=== PATIENT | female | born 1980 | race Caucasian/White ===

== ENCOUNTER → 2018-05-18 11:48 | Outpatient (CLI) | payer MEDICAID, SELFPAY ==
[2018-05-22 09:43] LABS: HPV Reflexed? NOT INDICATED
== END ==
PROVIDERS: Visit Provider Obstetrics & Gynecology
DX: Z12.4 Encounter for screening for malignant neoplasm of cervix (principal)
CPT/HCPCS: 88175; G0145

== ENCOUNTER → 2022-04-29 | Outpatient (CLI) | payer MEDICAID, SELFPAY ==
[2022-04-29 18:01] LABS: Erythrocyte Sedimentation Rate 16 mm/hr (0-30)
[2022-04-29 18:04] LABS: Vitamin D,25 Hydroxy 55.9 ng/mL
[2022-04-29 18:16] LABS: Anion Gap 8 (5-15); BUN 13 mg/dL (7-18); Calcium,Total 9.1 mg/dL (8.5-10.1); Chloride 107 mmol/L (98-107); Cholesterol 164 mg/dL (200); Creatinine, Serum 0.77 mg/dL (0.55-1.02); EST Glomerular Filtration Rate 87 mL/min (>60); Est Glom Filt Rate - Afr Amer 106 mL/min (>60); Glucose 88 mg/dL (74-106); High Density Lipoprotein 76 mg/dL; Potassium 3.9 mmol/L (3.5-5.1); Sodium Level 140 mmol/L (136-145); Thyroid Stim Hormone (TSH) 2.26 uIU/mL (0.358-3.74); Triglycerides 82 mg/dL; Very Low Density Lipoprotein 16 mg/dL (5-40)
== END | disposition home or self-care (01) ==
LOC: MFPLAB 15:18
PROVIDERS: PCP Family Medicine; Referring Provider Family Medicine; Visit Provider Family Medicine
DX: Z00.00 Encounter for general adult medical examination without abnormal findings (principal)
CPT/HCPCS: 36415; 80048; 80061; 82306; 84443; 85652

== ENCOUNTER → 2022-07-29 | Outpatient (CLI) | payer MEDICAID, SELFPAY ==
--- NOTE | 2022-07-29 13:40 | BI_ITS ---
MAMMOGRAPHY - BILATERAL SCREENING REASON FOR EXAM: Female, 42 years old. Routine annual screening examination. PERTINENT HISTORY: Aunt with breast cancer. TECHNIQUE: Digital bilateral breast kurt (3D mammographic acquisition) in the CC and MLO projections. 2-D mediolateral oblique (MLO) and craniocaudad (CC) views of both breasts were obtained. CAD: Full Field Digital Mammography with Computer Added Detection was performed. COMPARISON: None. Baseline examination. FINDINGS: Breast Composition: The breasts are extremely dense, which lowers the sensitivity of mammography. There are no dominant masses or suspicious calcifications. No other significant abnormalities are identified. BI/SCRN MAMM (CAD)W/KURT BILAT IMPRESSION: Negative screening mammogram. Yearly followup mammogram recommended. (A) ASSESSMENT CATEGORY: BIRADS Category 1: Negative. A letter regarding these results will be sent to the patient by the facility within 30 days. Approximately 10% of breast cancers are not detected by mammography. A normal mammogram should not delay biopsy of a clinically suspicious abnormality. [id number] Electronically Signed: Raul Ortiz MD at 14:36 EST ,
== END | disposition home or self-care (01) ==
LOC: OPBI 13:40
PROVIDERS: PCP Family Medicine; Referring Provider Family Medicine; Visit Provider Family Medicine
DX: Z12.31 Encounter for screening mammogram for malignant neoplasm of breast (principal)
CPT/HCPCS: 77063; 77067

== ENCOUNTER → 2022-08-01 | Outpatient (CLI) | payer MEDICAID, SELFPAY ==
--- NOTE | 2022-08-01 17:37 | STRESSREP ---
Stress Test Report Exercise myocardial perfusion stress test. 42-year-old lady with a history of chest pain Stress protocol: Resting EKG demonstrates normal sinus rhythm with a rate of 76 bpm resting blood pressure is 118/78 mmHg. The patient exercised according to the regular Michael protocol for a total duration of 9 minutes attaining a maximum heart rate of 153 bpm which was 86% of maximum predicted heart rate; the maximum workload was 10.1 metabolic equivalents. At rest there were no ST or T wave changes noted to suggest ischemia and at peak exercise upsloping ST changes only were noted which did not meet the criteria for ischemia. No clinical angina was noted the test was terminated due to the target heart rate being achieved/fatigue. The peak blood pressure was 140/72 mmHg. Rate-pressure product was 19,100. Myocardial perfusion protocol. 11 mCi of technetium 99m sestamibi was injected at rest. The patient exercised according to regular Michael protocol for total duration of 9 minutes and at peak exercise 33.6 mCi of technetium 99m sestamibi was injected stress images were obtained stress and rest images were reconstructed in comparing the short axis vertical long and horizontal long axis. Gated images were also obtained. Perfusion SPECT analysis: Review of the stress images demonstrate normal uptake of tracer noted in all areas of the myocardium. The resting images similarly demonstrate normal uptake of tracer noted in all areas of the myocardium. No areas of reversibility are noted to suggest ischemia no previous infarct was noted. Gated SPECT analysis: The gated ejection fraction is 68%. Conclusion: Normal exercise myocardial perfusion stress test at a high workload Preserved ejection fraction.
== END | disposition home or self-care (01) ==
PROVIDERS: PCP Family Medicine; Visit Provider Family Medicine
DX: R07.9 Chest pain, unspecified (principal)
CPT/HCPCS: 78452; 93017; A9500; A4216

== ENCOUNTER → 2022-10-07 | Outpatient (CLI) | payer MEDICAID, SELFPAY ==
--- NOTE | 2022-10-07 11:57 | RAD_ITS ---
STUDY: X-RAY - LUMBAR SPINE REASON FOR EXAM: Female, 42 years old. Sciatica TECHNIQUE: 5 view(s) of the lumbar spine were obtained. COMPARISON: None FINDINGS: Normal lumbar lordosis. There is no substantial scoliosis. There is slight retrolisthesis at L2-L3 and L1-L2. There is dextroscoliosis of the thoracolumbar spine at the level of T12 and L1. There is mild multilevel spondylosis. There is mild multilevel disc space narrowing. Most significant L5-S1. There is facet arthropathy. The soft tissue structures are unremarkable. RAD/L/S Spine Min 4 Views IMPRESSION: Dextroscoliosis thoracolumbar spine. Multilevel degenerative change thoracolumbar spine. Electronically Signed: Penelope Rodas MD at 12:50 EDT ,
== END | disposition home or self-care (01) ==
LOC: MTRAD 11:55
PROVIDERS: PCP Family Medicine; Referring Provider Family Medicine; Visit Provider Family Medicine
DX: M54.30 Sciatica, unspecified side (principal)
CPT/HCPCS: 72110

== ENCOUNTER → 2022-12-12 | Outpatient (CLI) | payer MEDICAID, SELFPAY ==
--- NOTE | 2022-12-12 16:51 | NEURO ---
NCS and/or EMG Patient Report Ordering Doctor: Luís Dove DATE OF SERVICE: 12/12/22 Findings: Nerve conduction studies were performed in the right and left upper extremities. The right median motor study recording the abductor pollicis brevis showed a normal amplitude, normal distal latency and normal conduction velocity. The right ulnar motor study recording the abductor digiti minimi showed a normal amplitude, normal distal latency and normal conduction velocity. No conduction block or focal slowing was present across the elbow. The right median sensory response recording digit two showed a normal amplitude, borderline latency and slowed conduction velocity. The right ulnar sensory response recording digit five showed a normal amplitude, latency and conduction velocity. The right radial sensory response recording over the extensor snuff box showed a normal amplitude, latency and conduction velocity. The left median motor study recording the abductor pollicis brevis showed a normal amplitude, normal distal latency and normal conduction velocity. The left ulnar motor study recording the abductor digiti minimi showed a normal amplitude, normal distal latency and normal conduction velocity. No conduction block or focal slowing was present across the elbow. The left median sensory response recording digit two showed a normal amplitude, borderline latency and slowed conduction velocity. The left ulnar sensory response recording digit five showed a normal amplitude, latency and conduction velocity. The left radial sensory response recording over the extensor snuff box showed a normal amplitude, latency and conduction velocity. Right median-ulnar lumbrical / interosseous motor latencies showed a prolonged median latency compared to the ulnar. Left median-ulnar lumbrical / interosseous motor latencies showed a prolonged median latency compared to the ulnar. Needle EMG of the right upper extremity and cervical paraspinal muscles was performed. No denervation was seen in any muscle. All motor unit morphology, activation and recruitment patterns were normal. Needle EMG of the left upper extremity was omitted due to the paucity of findings on the more symptomatic side. Impression: This is an abnormal study. There is electrophysiologic evidence of mild median neuropathy across the wrist in both upper extremities. These findings are compatible with the clinical diagnosis of mild carpal tunnel syndrome. In addition, there is no electrophysiologic evidence of superimposed cervical radiculopathy, brachial plexopathy or other entrapment neuropathy in the right upper extremity. Sumanth Morin D.O. Multi Select Codes Neurology Neurology Interp Codes: 97481-12 Musc test done w/n test comp (interp) and 73421-13 Nrv cndj test 13/> studies (interp)
== END | disposition home or self-care (01) ==
LOC: PSN 15:27
PROVIDERS: PCP Family Medicine; Referring Provider Family Medicine; Visit Provider Family Medicine
DX: R20.2 Paresthesia of skin (principal)
CPT/HCPCS: 95886; 95913

== ENCOUNTER 2023-03-05 13:28 | Emergency (ER) | payer MEDICAID, SELFPAY ==
[2023-03-05 13:30] VITALS: BP 109/79; PULSE 85; RESP 18; TEMP 36.9; O2SAT 97; BMI 29.2
[2023-03-05] MEDS: Morphine 4 MG/ML Syringe 6 MG IM (14:02)
[2023-03-05] MEDS: predniSONE 20 MG Tablet 60 MG PO (14:03)
[2023-03-05] MEDS: Ondansetron ODT 4 MG Tablet PO (14:03)
[2023-03-05 14:30] LABS: Bacteria 0 SEEN /hpf (None Seen); Mucous, Urine 0 SEEN /hpf (<or=2+); Red Blood Cells-Urine 0 SEEN /hpf (0-5)
[2023-03-05 14:32] LABS: Color, Urine Yellow (Yellow); Glucose, Dipstick Normal (Normal); Ketone-Dipstick 50 mg/dl (Negative); Leukocyte Esterase-Dipstick 100 /ul (Negative); Nitrite-Dipstick Negative (Negative); Occult Blood-Urine Negative /ul (Negative); Protein-Dipstick Negative (Negative); Urine Bilirubin Dipstick Negative (Negative); Urine Clarity Sl. Cloudy (Clear); Urine Urobilinogen Normal (Normal)
[2023-03-05 14:45] LABS: Squamous Epithelial Cells - UA 5-10 SEEN /hpf (5-10); White Blood Cells 10-25 SEEN /hpf (0-5)
[2023-03-05 14:47] LABS: Calcium Oxalate Crystals Ur 0 SEEN /hpf (<or=2+); Coarse Granular Cast 0 SEEN /lpf (0-5 /lpf); Fine Granular Cast- Urine 0 SEEN /lpf (0-5); Hyaline Cast 0 SEEN /lpf (0-5); Red Cell Cast 0 SEEN /lpf (None Seen); Renal Epithelial Cells 5-10 SEEN /hpf (0-5); Transitional Epithelial - Ur 5-10 SEEN /hpf (0-5); Triple Phosphate Crystals Ur 0 SEEN /hpf (<or=1+); Uric Acid Crystals Ur 0 SEEN /hpf (<or=1+); Waxy Cast-Urine 0 SEEN /lpf (None Seen); White Cell Cast 0 SEEN /lpf (None Seen)
[2023-03-05 14:48] LABS: Internal QC Validated? YES +Cl - CLEAR BKGD; Other Crystals-Urine 1+ /hpf (None Seen); Pregnancy, Urine Negative Negative; Record Kit Lot#,Urine Preg HCG0000667200
--- NOTE | 2023-03-05 15:43 | ED.VIS.BACK ---
HPI History of Present Illness Chief Complaint: Back Informant: patient Narrative Narrative: Patient is a 42-year-old female presenting from home for low back pain rating down her leg. She states she has a history of sciatica (usually on her right side) but is never been this bad. She states about 2 weeks ago she had another flareup but she was able to treat it with stretching and rest at home. Yesterday morning she woke up she urinate around 5 AM and on the toilet she suddenly had severe pain in her right lower back rating down to her right thigh. She is the pain was so bad that she was nauseous and felt lightheaded. She was sweating. She was using a heating pad and was feeling a little bit better morning until she had a change of diaper of her disabled child. All of a sudden the pain came back and was intolerable. She another episode nausea and lightheadedness. Her to come to the emergency room. She notes that she does take meloxicam and have gabapentin at home for carpal tunnel which has not been treated yet. She had been previously referred to spine doctor but they do not take her insurance ([employer]). She also wonders if she could have a UTI as she does have some slight pain radiating into her right groin/suprapubic area. Denies any blood in her urine. Denies any fever or chills. Denies any bowel or bladder incontinence. Pain is better when she lays completely still and significantly worse with movements. No other complaints at this time. PFSH PFSH Home Medications hydrocodone-acetaminophen 5-325mg 5mg-325mg 1 tab PO Q6H PRN PRN Pain 3 days #12 TABLETS 03/05/23 [Rx Last Taken Unknown] nitrofurantoin monohydrate/macrocrystals 100 mg capsule (Macrobid) 100 mg PO Q12H 3 days #6 caps 03/05/23 [Rx Last Taken Unknown] ondansetron 4 mg disintegrating tablet 4 mg PO Q8H PRN PRN Nausea #10 tabs 03/05/23 [Rx Last Taken Unknown] prednisone 20 mg tablet 40 mg (2 x 20 mg) PO DAILY #8 TABLETS 03/05/23 [Rx Last Taken Unknown] Allergy/AdvReac Type Severity Reaction Status Date / Time No Known Allergies Allergy Verified 03/05/23 13:30 Social History Smoking Status: Never smoker ROS ROS ED Constitutional Constitutional ED: Denies chills or fever(s) Gastrointestinal Gastrointestinal: Reports nausea; Denies abdominal pain, diarrhea or vomiting Genitourinary Genitourinary ED: Reports other Details: Traced back pain with urination ; Denies dysuria, hematuria or urinary frequency Musculoskeletal Musculoskeletal: Reports back pain; Denies arthralgias Integumentary Denies rash Neurologic Neurologic: Denies paresthesias or weakness Psychiatric Psychiatric: Denies anxiety EXAM Physical Exam Const Vital Signs: 03/05/23 13:30 Temperature 98.4 F Temperature Source Temporal Pulse Rate 85 Respiratory Rate 18 Blood Pressure 109/79 Blood Pressure Mean 89 Pulse Ox 97 Oxygen Delivery Method Room Air Positive well nourished and well developed General Appearance ED: well developed and NAD HEENT Reports moist mucous membranes Resp normal respiratory effort and clear to auscultation bilaterally Cardio regular rate, regular rhythm and no murmurs GI normal to inspection, nondistended, normoactive bowel sounds and soft to palpation Back/Spine General Back: Negative for CVA tenderness Cervical Spine: Negative for cervical spine tenderness Lumbar Spine / Lower Back: straight leg raise positive right at 30 degrees and straight leg raise positive - left at 70 degrees Extremity normal to inspection Extremity Narrative: 2+ DP pulses General Extremety ED: Negative for edema or tenderness General Extremity: Negative for edema Neuro oriented x3 Sensorium / Orientation: alert Motor Exam: strength 5/5 throughout Psych mental status grossly normal MDM MDM MDM Narrative Medical decision making narrative: Patient presenting for worsening back pain. Back pain is highly consistent with sciatica right. She does not have red flag symptoms concerning for cauda equina syndrome. No midline tenderness to make trauma. Do not think any imaging is indicated at this time. I do not think she meets criteria for an emergent MRI. Is given Zofran, oral prednisone and IM morphine. Does require redose of morphine prior to discharge. Will place on a burst of steroids and give a short course of [place] as well as Zofran for further pain control. Will refer to pain management as well as [facility] as they are in network. Counseled return precautions as well as red flag symptoms. Counseled that she may ultimately require an MRI of her back. Patient verbalized agreement understand this plan. Discharged home in stable and improved condition. Urinalysis does show contamination but does have 10-25 white blood cells. We will start her on Macrobid and send for culture. Patient is agreeable. I did discuss that if patient feel more comfortable she can wait till culture comes back before starting the antibiotic. Lab Data Labs: Laboratory Results - last 24 hr 03/05/23 14:22 Urine Color Yellow Urine Clarity Sl. Cloudy Urine pH 7.0 Ur Specific [place] 1.010 Urine Protein Negative Urine Glucose (UA) Normal Urine Ketones 50 H Urine Occult Blood Negative Urine Nitrite Negative Urine Bilirubin Negative Urine Urobilinogen Normal Ur Leukocyte Esterase 100 H Urine RBC 0 SEEN Urine WBC 10-25 SEEN Ur Squamous Epith Cells 5-10 SEEN Ur Transition Epith Cell 5-10 SEEN Ur Renal Epithelial Cell 5-10 SEEN Calcium Oxalate Crystal 0 SEEN Uric Acid Crystals 0 SEEN Triple Phos Crystals 0 SEEN Other Crystals 1+ Urine Bacteria 0 SEEN Hyaline Casts 0 SEEN Fine Granular Casts 0 SEEN Coarse Granular Casts 0 SEEN Waxy Casts 0 SEEN RBC Casts 0 SEEN WBC Casts 0 SEEN Urine Mucus 0 SEEN Urine Test Negative Discharge Plan Triage Chief Complaint: Back Other Complaint: Lower Extremity Injury ED Provider: Francie Saini Dx/Rx/DC Orders Clinical Impression: Sciatica of right side, UTI (urinary tract infection) Instructions: ED Sciatica, ED Cystitis Female Adult Prescriptions: New nitrofurantoin monohyd/m-cryst [Macrobid] 100 mg capsule 100 mg PO Q12H 3 Days Qty: 6 0RF Rx Instructions: must administer with a meal/food prednisone 20 mg tablet 40 mg PO DAILY Qty: 8 0RF ondansetron 4 mg tablet,disintegrating 4 mg PO Q8H PRN PRN (Reason: Nausea) Qty: 10 0RF hydrocodone-acetaminophen 5-325 mg tablet 1 tab PO Q6H PRN PRN (Reason: Pain) 3 Days Qty: 12 0RF Primary Care Provider: Luís Dove Referrals: Viet Michaels MD [Med Staff - Active Staff] - As Needed Tj Singleton DO [Med Staff - Active Staff] - As Needed Luís Dove MD [Primary Care Provider] - Activity Restrictions/Additional Instructions: You do have a possible UTI. We will send for culture to ensure you are on appropriate antibiotics. You continue taking your Mobic and gabapentin. In addition you been prescribed a short course of pain medicine as well as burst of steroids. Hopefully this will help calm down inflammation and pain in your back. You been given referral for pain management as well as orthopedics however I do not know if they are in network for you or not. If your symptoms worsen, you can no longer ambulate or you develop new neurologic symptoms please return to the emergency room Disposition Disposition: Home, Self Care Discharge Date/Time: 03/05/23 16:30
[2023-03-05] MEDS: morphine 10 MG/ML Syringe 6 MG IM (15:53)
== END 2023-03-05 16:30 | disposition home or self-care (01) ==
PROVIDERS: Emergency Provider Emergency Medicine; PCP Family Medicine; Visit Provider Emergency Medicine
DX: M54.31 Sciatica, right side (principal); N39.0 Urinary tract infection, site not specified; Z79.52 Long term (current) use of systemic steroids
CPT/HCPCS: 81001; 81025; 87086; 87088; 96372; 99284

== ENCOUNTER → 2023-05-05 | Outpatient (CLI) | payer MEDICAID, SELFPAY ==
[2023-05-05 11:49] LABS: Erythrocyte Sedimentation Rate 13 mm/hr (0-30)
[2023-05-05 12:01] LABS: CRP < 2.90 mg/L (0.0-3.0); Rheumatoid Factor < 10.0 IU/mL (<15)
[2023-05-08 13:07] LABS: ANTINUCLEAR ANTIBODIES DIRECT Positive (Negative)
== END | disposition home or self-care (01) ==
LOC: MFPLAB 10:42
PROVIDERS: PCP Family Medicine; Visit Provider Family Medicine
DX: M25.50 Pain in unspecified joint (principal)
CPT/HCPCS: 36415; 85652; 86038; 86140; 86431

== ENCOUNTER → 2023-09-08 | Outpatient (CLI) | payer MEDICAID, SELFPAY ==
[2023-09-08 18:04] LABS: Thyroid Stim Hormone (TSH) 2.48 uIU/mL (0.358-3.74)
[2023-09-11 12:08] LABS: ANTINUCLEAR ANTIBODIES DIRECT Positive (Negative)
== END | disposition home or self-care (01) ==
LOC: MTLAB 14:48
PROVIDERS: PCP Family Medicine; Referring Provider Family Medicine; Visit Provider Family Medicine
DX: R63.5 Abnormal weight gain (principal); M25.50 Pain in unspecified joint
CPT/HCPCS: 36415; 84443; 86038

== ENCOUNTER → 2023-09-19 | Outpatient (CLI) | payer MEDICAID, SELFPAY ==
--- NOTE | 2023-09-19 12:36 | BI_ITS ---
MAMMOGRAPHY - BILATERAL SCREENING REASON FOR EXAM: Female, 43 years old. Routine annual screening examination. PERTINENT HISTORY: Aunt with breast cancer. TECHNIQUE: Digital bilateral breast kurt (3D mammographic acquisition) in the CC and MLO projections. 2-D mediolateral oblique (MLO) and craniocaudad (CC) views of both breasts were obtained. CAD: Full Field Digital Mammography with Computer Added Detection was performed. COMPARISON: Comparison is made with prior study dated July 29, 2022. FINDINGS: Breast Composition: The breasts are extremely dense, which lowers the sensitivity of mammography. There are no dominant masses or suspicious calcifications. Stable small right axillary lymph nodes. No other significant abnormalities are identified. There has been no significant change since the prior study. BI/SCRN MAMM (CAD)W/KURT BILAT IMPRESSION: Stable bilateral screening mammogram. Yearly follow-up mammogram recommended. (A) ASSESSMENT CATEGORY: BIRADS Category 2: Benign. A letter regarding these results will be sent to the patient by the facility within 30 days. Approximately 10% of breast cancers are not detected by mammography. A normal mammogram should not delay biopsy of a clinically suspicious abnormality. [id number] Electronically Signed: Raul Ortiz MD at 13:54 EDT ,
== END | disposition home or self-care (01) ==
LOC: OPBI 12:35
PROVIDERS: PCP Family Medicine; Referring Provider Family Medicine; Visit Provider Family Medicine
DX: Z12.31 Encounter for screening mammogram for malignant neoplasm of breast (principal)
CPT/HCPCS: 77063; 77067

== ENCOUNTER → 2024-05-07 | Outpatient (CLI) | payer MEDICAID, SELFPAY ==
--- NOTE | 2024-05-07 09:18 | RAD_ITS ---
STUDY: X-RAY CHEST REASON FOR EXAM: Female, 43 years old. cough, sob TECHNIQUE: PA and lateral views of the chest. COMPARISON: None. FINDINGS: Lungs are expanded with platelike atelectasis in the left midlung field. No organized infiltrate or effusion. There is no demonstrated pleural abnormality. Normal size heart. Normal mediastinum and lenka. Normal visualized pulmonary arteries. Normal visualized aortic arch and descending thoracic aorta. Normal visualized thoracic spine. Normal visualized ribs, clavicles, and shoulders. There is no demonstrated abnormality of the visualized soft tissue structures of the upper abdomen. RAD/Chest PA and Lateral IMPRESSION: Platelike atelectasis in the left midlung field otherwise unremarkable study Electronically Signed: Tres Avendano MD at 11:34 EST ,
[2024-05-07 12:31] LABS: Absolute Lymphocyte Count 1.21 X10^3/uL (0.83-4.51); Absolute Neutrophil Count 5.6 X10^3/uL (2.0-7.7); Basophil# 0.06 X10^3/uL; Basophil% 0.7 % (0-1); Eosinophil# 0.18 X10^3/uL; Eosinophils% 2.2 % (0-5); Hematocrit 38.2 % (37-47); Hemoglobin 12.9 g/dL (12.0-15.0); Lymphocyte # 1.21 X10^3/ul (0.83-4.51); Lymphocyte % 15.1 % (19-41); Mean Corp Hgb Conc 33.8 g/dL (32-36); Mean Corpuscular Hgb 28.1 pg (27.0-32.0); Mean Corpuscular Volume 83.2 fL (81-99); Mean Platelet Vol. 11.1 fl (6.2-12.0); Monocyte# 0.97 X10^3/uL; Monocyte% 12.1 % (0-10); NRBC Flagged by Analyzer 0 % (0-5); Neutrophil # 5.58 X10^3/uL (2.7-7.7); Neutrophil % 69.5 % (47-70); Platelet Count 205 K/mm3 (150-450); RBC Distribution Width CV 12.9 % (11.6-14.6); RBC Distribution Width SD 39.1 fl (35.1-43.9); Red Blood Count 4.59 M/mm3 (4.2-5.4)
[2024-05-07 12:38] LABS: Anion Gap 5 (5-15); BUN 15 mg/dL (7-18); BUN/Creat Ratio 17.7 RATIO (10-20); Calcium,Total 9.3 mg/dL (8.5-10.1); Chloride 106 mmol/L (98-107); Creatinine, Serum 0.85 mg/dL (0.55-1.02); EST Glomerular Filtration Rate 77 mL/min (>60); Est Glom Filt Rate - Afr Amer 93 mL/min (>60); Glucose 87 mg/dL (74-106); Sodium Level 137 mmol/L (136-145)
== END | disposition home or self-care (01) ==
LOC: MTLAB 09:18
PROVIDERS: PCP Family Medicine; Referring Provider Nurse Practitioner Family; Visit Provider Nurse Practitioner Family
DX: R05.9 Cough, unspecified (principal); R50.9 Fever, unspecified; R06.02 Shortness of breath
CPT/HCPCS: 36415; 71046; 80048; 85025

== ENCOUNTER → 2024-05-22 | Outpatient (CLI) | payer MEDICAID, SELFPAY ==
--- NOTE | 2024-05-22 14:45 | RAD_ITS ---
INDICATION: PNEUMONIA EXAMINATION/TECHNIQUE: X-RAY - XR Chest 2 Views COMPARISON: Prior study dated: 05/07/2024 FINDINGS: LINES/DEVICES: None. LUNGS: The lungs are well expanded. No consolidation, edema or effusion. No pneumothorax. MEDIASTINUM AND CARDIOVASCULAR STRUCTURES: Cardiac silhouette not enlarged. Central airways and mediastinal contour are unremarkable. BONES AND SOFT TISSUES: No acute abnormality. Mild degenerative changes of the spine. RAD/Chest PA and Lateral IMPRESSION: No acute pulmonary finding. Resolution of prior left midlung opacity. Electronically Signed: John Tracey MD at 7:14 EST ,
== END | disposition home or self-care (01) ==
LOC: MTRAD 14:43
PROVIDERS: PCP Family Medicine; Referring Provider Family Medicine; Visit Provider Family Medicine
DX: J18.9 Pneumonia, unspecified organism (principal)
CPT/HCPCS: 71046

== ENCOUNTER → 2024-09-25 | Outpatient (CLI) | payer MEDICAID, SELFPAY ==
--- NOTE | 2024-09-25 10:37 | BI_ITS ---
EXAM: SCRN MAMM (CAD)W/KURT BILAT 09/25/2024 CLINICAL HISTORY: F, Age 44 y/o , SCREENING TECHNIQUE: Bilateral screening digital breast tomosynthesis with 2D and 3D images. Computer aided detection. COMPARISON: Prior exam(s) dated 09/19/2023, 07/29/2022. FINDINGS: TISSUE DENSITY: The breast tissue is heterogenously dense, which may obscure small masses. The mammogram demonstrates that the patient has dense breasts. Supplemental screening with whole breast ultrasound or MRI may be considered for further evaluation. Bilateral Breast Mammographic Findings: There is an obscured mass in the upper-outer left breast at middle depth. No significant masses, calcifications or other abnormalities are identified in the right breast. BI/SCRN MAMM (CAD)W/KURT BILAT IMPRESSION: The obscured mass in the upper-outer left breast at middle depth requires furth er evaluation. Recommend diagnostic ultrasound of the left breast. Right Breast: BIRADS 1 NEGATIVE. Left Breast: BIRADS 0 Incomplete: Need additional imaging evaluation and/or pr ior mammograms for comparison.. OVERALL FINAL ASSESSMENT: BIRADS 0 Incomplete: Need additional imaging evaluati on and/or prior mammograms for comparison.. RECOMMENDATION: Recommendation: Ultrasound. A letter with findings and recommendations will be mailed to the patient. Reading Location: [id number]
== END | disposition home or self-care (01) ==
LOC: OPBI 10:36
PROVIDERS: PCP Family Medicine; Referring Provider Family Medicine; Visit Provider Family Medicine
DX: Z12.31 Encounter for screening mammogram for malignant neoplasm of breast (principal)
CPT/HCPCS: 77063; 77067

== ENCOUNTER → 2024-10-02 | Outpatient (CLI) | payer MEDICAID, SELFPAY ==
--- NOTE | 2024-10-02 12:18 | US_ITS ---
PROCEDURE: BREAST LIMITED UNILATERAL 10/02/2024 REASON FOR EXAM: ABN MAMM UPPER OUTER LEFT BREAST TECHNIQUE: Targeted left breast ultrasound. COMPARISON: Prior mammogram dated September 25, 2024. FINDINGS: Left breast ultrasound was targeted to the upper midportion of the left breast.. The mammographic abnormality corresponds to a 2 cm x 1.8 cm by 0.8 cm well- defined hypoechoic nodule at the 1 o'clock position of the breast at 1 cm from the nipple. This most likely represents a fibroadenoma although tissue diagnosis recommended. US/Breast Limited Unilateral IMPRESSION: Impression: 2 cm x 1.8 cm x 0.8 cm well-defined hypoechoic nodule at the 1 o'cl ock position of the breast at 1 cm from the nipple. This most likely represents a fibroadenoma. Biopsy recommended. Birads: BI-RADS 4: SUSPICIOUS ABNORMALITY. Reading Location: [place] [id number]
== END | disposition home or self-care (01) ==
LOC: OPUS 12:16
PROVIDERS: PCP Family Medicine; Referring Provider Family Medicine; Visit Provider Family Medicine
DX: R92.8 Other abnormal and inconclusive findings on diagnostic imaging of breast (principal)
CPT/HCPCS: 76642

== ENCOUNTER → 2024-10-09 | Outpatient (CLI) | payer MEDICAID, SELFPAY ==
--- NOTE | 2024-10-09 08:30 | BRBX_PTH ---
PATIENT: AMY MARCUS LOC: [facility] U#:[id number] AGE/SX: 44/F ROOM: RE10/09/[address]: Dr. Eder Napoles MD : 1980 BED: DIS: 10/09/2024 SPEC #: [id number] RECD: 10/09/24 10:12 STATUS: GABY ROBERT #: [id number] MICK: 10/09/24 08:[address]: Eder Napoles DEPT: SURGICAL PATHOLOGY RECD BY: Raymond Latham ENTERED: 10/09/24 11:31 SP TYPE: BREAST BX OTHR DR: Dr. Luís Dove MD Tissues: A - Left breast, NOS Procedures: Surgery Specimen Level IV HEADER OPERATION: Left breast biopsy PRE-OP DIAGNOSIS: Left breast biopsy TISSUE SUBMITTED: A- Left breast nodule Ischemic Time: 1 minute Fixation Time: 10 hours MICROSCOPIC DIAGNOSIS A. Left breast, nodule, biopsy: * Benign fibroadipose breast tissue with dense stromal fibrosis MICROSCOPIC DESCRIPTION Slides are reviewed. GROSS DESCRIPTION A. Received in formalin in a container labeled with the patient's name, date of , and L breast tissue are 3 white-yellow, cylindrical core biopsies of fibrofatty tissue ranging from 1.0 x 0.2 cm to 2.3 x 0.1 cm. Submitted in toto in A1. Total formalin fixation time: Between 6 and [address] [facility] 10-09-2024 CPT:27197
== END | disposition home or self-care (01) ==
LOC: LABSPEC 10:14
PROVIDERS: PCP Family Medicine; Referring Provider Surgery; Visit Provider Surgery
DX: N60.32 Fibrosclerosis of left breast (principal)
CPT/HCPCS: 88305

== ENCOUNTER → 2025-04-24 | Outpatient (CLI) | payer MEDICAID, SELFPAY ==
[2025-04-24 16:21] LABS: Anion Gap 12 (5-15); BUN 13 mg/dL (4-19); BUN/Creat Ratio 17.6 RATIO (10-20); Calcium,Total 9.1 mg/dL (7.6-11.0); Carbon Dioxide 22.1 mmol/L (21.0-32.0); Chloride 105 mmol/L (98-108); Cholesterol 197 mg/dL (<=200); Glucose 82 mg/dL (70-99); Low Density Lipoprotein Calc. 123 mg/dL; Potassium 4.0 mmol/L (3.3-5.1); Triglycerides 105 mg/dL; Very Low Density Lipoprotein 21 mg/dL (5-40); cholesterol:hdl ratio screen 3.59
== END | disposition home or self-care (01) ==
LOC: MTLAB 11:23
PROVIDERS: PCP Family Medicine; Referring Provider Family Medicine; Visit Provider Family Medicine
DX: Z00.00 Encounter for general adult medical examination without abnormal findings (principal); F41.9 Anxiety disorder, unspecified
CPT/HCPCS: 36415; 80048; 80061; 84443